=== PATIENT | male | born 1965 | race Caucasian/White ===

== ENCOUNTER 2017-01-12 06:51 | Emergency (ER) | payer BC ==
[~2017-01-12] VITALS: Ht 203.2 cm; Wt 142.9 kg
[2017-01-12 08:16] VITALS: BP 140/88
== END 2017-01-12 08:16 | disposition home or self-care (01) ==
LOC: ED 06:51
DX: M54.41 Lumbago with sciatica, right side (principal); M48.00 Spinal stenosis, site unspecified
CPT/HCPCS: J1170; J1885; J7512; Q0162